=== PATIENT | male | born 1970 | race Caucasian/White ===

== ENCOUNTER 2016-10-10 17:02 | Emergency (ER) | payer OTHER, BC ==
[~2016-10-10] VITALS: Ht 182.9 cm; Wt 95.3 kg
[2016-10-10 17:42] VITALS: BP 145/89
--- NOTE | 2016-10-10 17:45 | PHYS DOC ---
General Chief Complaint: BACK PAIN OR INJURY Stated Complaint: BACK PAIN Time Seen by MD: 17:31 Source: patient Exam Limitations: no limitations Problems: History of Present Illness Initial Comments Patient is a 46-year-old male who comes the ED complaining of Workmen's Compensation back injury. Patient states that immediately prior to ED arrival he was at work lifting a heavy transfer case, as he was lifting and twisting his body he felt a pop in his lumbar spine followed by severe pain. He says the pain was so great it took his breath away and he felt weak for a short period. He tried to lay down thinking pain would subside however it has worsened. At rest he describes a sharp throbbing discomfort 5 out of 10, with movement pain increases to severe. He denies leg symptoms no saddle anesthesia and no incontinence of bowel or bladder. No prior back injury, he did notify his employer he's had no other pre- arrival interventions. Overall he is generally healthy he does smoke 1-1/2 packs a day and admits to a sixpack of beer nightly. He denies any other trauma mechanism of injury was simply lifting and twisting. Timing/Duration: 1-3 hours Severity: severe Modifying Factors: worse with movement Associated Symptoms: other Allergies: Coded Allergies: No Known Drug Allergies (Unverified , 10/10/16) Past Medical History Medical History: no pertinent history Surgical History: noncontributory (hernia) Social History Smoker: cigarettes Alcohol: occasionally Drugs: none Review of Systems Constitutional: denies chills, denies diaphoresis, denies fever, denies malaise Respiratory: denies cough, denies shortness of breath Cardiovascular: denies chest pain, denies palpitations, denies syncope Gastrointestinal: denies abdominal pain, denies constipation, denies diarrhea, denies nausea, denies vomiting Genitourinary: denies discharge, denies dysuria, denies frequency, denies hematuria Musculoskeletal: see HPI Psychiatric/Neurological: denies headache, denies numbness, denies paresthesia , denies tingling, denies weakness Physical Exam General Appearance: WD/WN, moderate distress Eyes: bilateral eye normal inspection, bilateral eye PERRL, bilateral eye EOMI Ear, Nose, Throat: hearing grossly normal, normal ENT inspection Neck: non-tender, supple Respiratory: normal breath sounds, no respiratory distress Cardiovascular: normal peripheral pulses, regular rate, rhythm Gastrointestinal: non tender, soft Back: no CVA tenderness, no vertebral tenderness, decreased range of motion, muscle spasm Extremities: non-tender, normal inspection 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 I discussed initial symptomatic treatment and possible need for MRI if symptoms persist. He was given the option to remain in the department until medications began to work to evaluate efficacy however he chooses to go home. I discussed the treatment plan and follow-up is expressed agreement and understanding of same. Departure Time of Disposition: 17:42 Disposition: 01 HOME, SELF-CARE Diagnosis: low back strain Condition: STABLE Patient Instructions: Low Back Strain with Rehab[facility] Additional Instructions: Stop smoking, seek medical assistance if necessary. Drink alcohol in moderation. No alcohol while taking pain medications and/or muscle relaxants. Rest, keep activity to "pain free." Work excuse through October 13. [id number] ibuprofen for baseline discomfort. Prescription: [place] 10/325 quantity 20, Flexeril, prednisone Follow-up with your doctor on Saturday for recheck. Follow-up with your employer regarding Worker's Compensation. Return to the ED with new or changing symptoms. LONNIE OTT DO Oct 10, 2016 17:45
[2016-10-10] MEDS ORDERED: ONDANSETRON ODT 4 MG TAB.RAPDIS PO ONE (18:15)
[2016-10-10] MEDS ORDERED: HYDROcodone/APAP 10/325 1 TAB TABLET PO ONE (18:15)
[2016-10-10] MEDS ORDERED: ORPHENADRINE CITRATE 60 MG/2 ML VIAL. IM ONE (18:15)
== END 2016-10-10 18:22 | disposition home or self-care (01) ==
LOC: ER 17:02
DX: S39.012A Strain of muscle, fascia and tendon of lower back, initial encounter (principal); F17.210 Nicotine dependence, cigarettes, uncomplicated; X58.XXXA Exposure to other specified factors, initial encounter; Y93.89 Activity, other specified; Y99.8 Other external cause status; Y92.89 Other specified places as the place of occurrence of the external cause
CPT/HCPCS: 96372; 99283; J2360; Q0162

== ENCOUNTER 2017-05-03 18:10 | Emergency (ER) | payer OTHER ==
[~2017-05-03] VITALS: Ht 182.9 cm; Wt 92.5 kg
[2017-05-03 18:30] VITALS: BP 167/90
--- NOTE | 2017-05-03 18:50 | ED.ADGEN ---
Past History Past Medical History: No Pertinent History Past Surgical History: Other Alcohol Use: Occasionally Drug Use: None Adult General Chief Complaint Chief Complaint " I was bending over and working on a car at work..( [employer]). under the dash.. and pulled something in my back... back on 04/16.. but I followed up with my chiropractor... On the third, fourth, fifth... But I'm still not better.." HPI HPI Patient is a 47 year old male who presents with above hx and complaints Rt. sciatica complaints. He denies any problems with defecation or urination. Pain appears to be localized right sciatic nerve. Radiates down to just above his knee on the right. Patient denies any history cancer. Patient denies any history of fever or chills. Patient denies any history of immunosuppression or IV drug use. Patient is normally healthy. Patient normally healthy. Review of Systems Review of Systems Constitutional: Denies fever or chills [] Eyes: Denies change in visual acuity, redness, or eye pain [] HENT: Denies nasal congestion or sore throat [] Respiratory: Denies cough or shortness of breath [] Cardiovascular: No additional information not addressed in HPI [] GI: Denies abdominal pain, nausea, vomiting, bloody stools or diarrhea [] : Denies dysuria or hematuria [] Musculoskeletal: Complaints of lumbar back pain Integument: Denies rash or skin lesions [] Neurologic: Denies headache, focal weakness or sensory changes [] Endocrine: Denies polyuria or polydipsia [] All other systems were reviewed and found to be within normal limits, except as documented in this note. Family History Family History Noncontributory Current Medications Current Medications Current Medications Medications (Trade) Dose Ordered Sig/Murray Start Time Stop Time Status Last Admin Dose Admin Ketorolac Tromethamine (Toradol) 60 mg 1X ONCE 05/03/17 19:15 05/03/17 19:16 DC 05/03/17 19:38 60 MG Methylprednisolone Acetate (DEPO-Medrol IM) 40 mg 1X ONCE 05/03/17 19:30 05/03/17 19:31 DC 05/03/17 19:37 40 MG Morphine Sulfate (Morphine 10mg Syringe) 10 mg 1X ONCE 05/03/17 19:30 05/03/17 19:31 DC 05/03/17 19:39 10 MG Orphenadrine Citrate (Norflex) 60 mg 1X ONCE 05/03/17 19:15 05/03/17 19:16 DC 05/03/17 19:38 60 MG See nursing for home meds Allergies Allergies Allergies Coded Allergies Type Severity Reaction Last Updated Verified No Known Drug Allergies 10/10/16 No Physical Exam Physical Exam Constitutional: Moderately acute distress, non-toxic appearance. [] HENT: Normocephalic, atraumatic, bilateral external ears normal, oropharynx moist, no oral exudates, nose normal. [] Eyes: PERRLA, EOMI, conjunctiva normal, no discharge. [] Neck: Normal range of motion, no tenderness, supple, no stridor. [] Cardiovascular:Heart rate regular rhythm, no murmur [] Lungs & Thorax: Bilateral breath sounds clear to auscultation [] Abdomen: Bowel sounds normal, soft, no tenderness, no masses, no pulsatile masses. [] No saddle loss. Patient declines rectal at this time. Skin: Warm, dry, no erythema, no rash. [] Back: Lumbar muscle spasm and tenderness, no CVA tenderness. [] Extremities: No tenderness, no cyanosis, no clubbing, ROM intact, no edema. [] Neurologic: Alert and oriented X 3, normal motor function, normal sensory function, no focal deficits noted. []DTRs +2 at patella and ankle. Psychologic: Affect anxious, judgement normal, mood normal. [] Current Patient Data Vital Signs Vital Signs Date Time Temp Pulse Resp B/P (MAP) Pulse Ox O2 Delivery O2 Flow Rate FiO2 05/03/17 18:30 80 20 98 Room Air EKG EKG [] Radiology/Procedures Radiology/Procedures CT of lumbar sacral shows no obvious fracture or dislocation. No severe foraminal or central canal stenosis. Does have degenerative joint changes. See formal report when available Course & Med Decision Making Course & Med Decision Making Pertinent Labs and Imaging studies reviewed. (See chart for details) Ice packs when necessary. After 3 days may advance to moist heat. Take Vicoprofen and Flexeril as needed for muscle spasms and marked pain. Follow-up work comp. Follow-up primary care. Return if any concerns. [] Final Impression Final Impression 1. Sciatica[] 2. Lumbar sacral strain Problems: Dragon Disclaimer Tamara Disclaimer This electronic medical record was generated, in whole or in part, using a voice recognition dictation system. SHUBHAM LYON MD May 03, 2017 18:50
[2017-05-03] MEDS ORDERED: CYCL-331 PO (19:02)
[2017-05-03] MEDS ORDERED: HYDR-79 PO (19:02)
[2017-05-03] MEDS ORDERED: KETOROLAC 60 MG/2 ML VIAL. IM ONE (19:15)
[2017-05-03] MEDS ORDERED: ORPHENADRINE CITRATE 60 MG/2 ML VIAL. IM ONE (19:15)
[2017-05-03] MEDS ORDERED: methylPREDNISolone ACETATE 40 MG/ML VIAL. IM ONE (19:30)
[2017-05-03] MEDS ORDERED: MORPHINE SULFATE 10 MG/ML SYRINGE. SQ ONE (19:30)
--- NOTE | 2017-05-03 19:36 | RAD ---
CT lumbar spine without intravenous contrast History: Injured low back pain today working on car. Technique: Noncontrast CT of the lumbar spine was performed. Axial, sagittal, and coronal reconstructions were obtained. Exposure: One or more of the following individualized dose reduction techniques were utilized for this examination: 1. Automated exposure control 2. Adjustment of the mA and/or kV according to patient size 3. Use of iterative reconstruction technique Findings: There is no evidence of acute fracture or acute malalignment. No paravertebral soft tissue swelling is identified. 5 lumbar type vertebral bodies are present. There is likely mild degenerative disc disease at L2-3, L3-4, L4-5, and L5-S1. Mild facet degeneration is seen at L4-5 and L5-S1. Mild bilateral neural foraminal narrowing is suspected at L3-4 and L5-S1. Impression: 1. No evidence of acute traumatic injury to the lumbar spine. 2. Mild degeneration. Electronically signed by: Rishi Harvey MD (05/03/2017 7:33 PM) [facility]
== END 2017-05-03 20:13 | disposition home or self-care (01) ==
LOC: ER 18:10
DX: S39.012A Strain of muscle, fascia and tendon of lower back, initial encounter (principal); M54.41 Lumbago with sciatica, right side; X50.9XXA Other and unspecified overexertion or strenuous movements or postures, initial encounter; Y93.89 Activity, other specified; Y99.8 Other external cause status; Y92.89 Other specified places as the place of occurrence of the external cause
CPT/HCPCS: 72131; 96372; 99284; J1030; J1885; J2270; J2360

== ENCOUNTER → 2017-06-10 | Outpatient (CLI) | payer OTHER ==
[~2017-06-10] MED LIST: CYCL-331 PO; HYDR-79 PO
--- NOTE | 2017-06-10 17:25 | RAD ---
Examination: Ultrasound right lower extremity venous duplex History: History of right leg numbness Comparison: None available Technique: Grayscale, color Doppler 2-D, spectral waveform analysis of the right lower extremity venous system were performed. Findings: The visualized right common femoral vein, superficial femoral vein, popliteal vein demonstrate normal compression and augmentation of flow. The visualized calf veins are patent. Impression: No evidence of deep venous thrombosis identified in the right lower extremity venous system.
== END | disposition home or self-care (01) ==
LOC: US 16:23
PROVIDERS: ATTEND Physical Medicine & Rehabilitation Pain Medicine
DX: M79.661 Pain in right lower leg (principal)
CPT/HCPCS: 93971